=== PATIENT | female | born 1935 | race Caucasian/White ===

== ENCOUNTER 2017-06-10 08:26 | Inpatient (IN) | payer MEDICARE, MEDICAID ==
[2017-06-10] MEDS ORDERED: Aspirin 81mg Chewable Tab PO STA (08:43)
[2017-06-10] MEDS ORDERED: Aspirin 81mg Chewable Tab ONE ×2 (08:53)
--- NOTE | 2017-06-10 08:53 | ED Physician Chart ---
ED Chief Complaint/HPI - Patient Information Date Seen:: 06/10/17 Time Seen:: 08:35 Chief Complaint:: chest pain History of Present Illness:: The patient has had chest pain intermittently for the last two weeks. The pain is across the superior chest and radiates to both shoulders. Pain is dull and sometimes sharp. Patient occasionally gets diaphoresis and shortness of breath. Today's episode of chest pain lasted a few minutes but prior episodes of chest pain lasted only a few seconds. Patient has no chest pain at present. Vitals:: Vital Signs - 8 hr 06/10/17 08:37 Temp 98.2 F HR 68 RR 16 BP 109/55 O2 Sat % 98 Historian:: Patient Review:: Nurse's Note Reviewed ED Review of Systems - Review of Systems General/Constitutional: No fever, No chills Skin: No skin lesions Head: No headache Eyes: No loss of vision ENT: No earache Neck: No neck pain Cardio Vascular: Chest pain Pulmonary: SOB GI: No nausea, No vomiting, No diarrhea G/U: No dysuria Musculoskeletal: No bone or joint pain, No muscle pain Endocrine: No polyuria, No polydipsia Psychiatric: No prior psych history, No depression Hematopoietic: No bruising Allergic/Immuno: No urticaria Neurological: No syncope, No focal symptoms, No weakness ED Past Medical History - Past Medical History Past Medical History: No significant medical hx Family History: None Social History: Non Smoker, No Alcohol, Other (patient smoked 2-3 packages of cigarettes a day until 28 years ago when she stopped) Surgical History: Psychiatricy History: None Medication: None Family Medical History - Family Member Father Hx Family Hypertension: Yes ED Physical Exam - Physical Examination General/Constitutional: Awake, Well-developed, well-nourished, Alert, No distress Head: Atraumatic Eyes: Lids, conjuctiva normal, PERRL Skin: Nl inspection, No rash ENMT: External ears, nose nl Neck: No JVD, No nuchal rigidity Respiratory: Nl effort/Exclusion, Clear to Auscultation, No Wheeze/Rhonchi/Rales Cardio Vascular: RRR, No murmur, gallop, rubs, NL S1 S2 GI: No tenderness/rebounding/guarding, No organomegaly, No hernia, Normal BS's, Nondistended, No mass/bruits, No McBurney tenderness : No CVA tenderness Extremities: No tenderness or effusion, Full ROM, Normal digits & nails Neuro/Psych: Alert/oriented, No focal deficits Misc: Normal back ED Labs/Radiology/EKG Results - Lab Results Results: Laboratory Results - last 24 hr 06/10/17 06/10/17 06/10/17 08:40 08:40 08:40 WBC 6.8 RBC 4.31 Hgb 13.1 Hct 39.3 L MCV 91.2 MCH 30.3 MCHC Differential 33.2 RDW 12.9 Plt Count 214 MPV 8.0 Neutrophils % 59.5 Lymphocytes % 34.1 Monocytes % 4.8 Eosinophils % 1.4 Basophils % 0.2 Sodium 139 Potassium 3.3 L Chloride 108 H Carbon Dioxide 25.7 Anion Gap 8.6 BUN 17 Creatinine 0.6 Est GFR ( Amer) TNP Est GFR (Non-Af Amer) TNP BUN/Creatinine Ratio 28.3 Glucose 95 Calcium 9.1 Magnesium Troponin I B-Natriuretic Peptide 37.6 06/10/17 06/10/17 08:40 08:40 WBC RBC Hgb Hct MCV MCH MCHC Differential RDW Plt Count MPV Neutrophils % Lymphocytes % Monocytes % Eosinophils % Basophils % Sodium Potassium Chloride Carbon Dioxide Anion Gap BUN Creatinine Est GFR ( Amer) Est GFR (Non-Af Amer) BUN/Creatinine Ratio Glucose Calcium Magnesium 2.3 Troponin I 0.01 B-Natriuretic Peptide - Radiology Results Results: Chest x-ray: Calcification of the aortic arch; otherwise chest x-ray is normal - EKG Interpretations Rate & Rhythm: normal sinus rhythm Sargeant: normal axis Intervals: rate 64 Comments:: Decreased amplitude of the T-wave ED Assessment - Assessment General Assessment: Patient feels better after the breathing treatment. Patient's chest pain is probably more pulmonary in nature than cardiac. ED Septic Shock - . Is Septic Shock (SBP<90, OR Lactate>4 mmol\L) present?: No - <6hrs of presentation: Vital Signs: Vital Signs - 8 hr 06/10/17 08:37 Temp 98.2 F HR 68 RR 16 BP 109/55 O2 Sat % 98 ED Reassessment (Disposition) - Reassessment Reassessment Condition:: Improved - Diagnosis Diagnosis:: atypical chest pain; hypokalemia - Patient Disposition Admitted to:: Telemetry Spoke to:: Ernesto Samuel Admitting Medical Physician:: Ernesto Samuel Condition at Disposition:: Stable, Improved
[2017-06-10 08:59] LABS: % BASOPHILS 0.2 % (0.0-2.0); % EOSINOPHILS 1.4 % (0.0-5.0); % LYMPHOCYTES 34.1 % (20.0-50.0); % MONOCYTES 4.8 % (2.0-10.0); % NEUTROPHILS 59.5 % (40.0-80.0); HEMATOCRIT 39.3 % (41.0-60); HEMOGLOBIN 13.1 gm/dL (12-16); MEAN CELL VOLUME 91.2 fl (81-100); MEAN CORPUSCULAR HEMOGLOBIN 30.3 pg (27.0-31.0); MEAN CORPUSCULAR HGB CONC 33.2 pg (28.0-36.0); NEUTROPHILE ABSOLUTE 4.1 Th/cmm (1.8-8.0); PLATELET COUNT 214 Th/cmm (150-400); RED BLOOD COUNT 4.31 Mil/cmm (3.80-5.20); RED CELL DISTRIBUTION WIDTH 12.9 % (11.5-20.0)
[2017-06-10 09:01] LABS: WHITE BLOOD COUNT 6.8 Th/cmm (4.8-10.8)
[2017-06-10] MEDS ORDERED: Albuterol Nebulizer 2.5mg/3mL HHN STA (09:01)
[2017-06-10] MEDS ORDERED: Albuterol Nebulizer 2.5mg/3mL HHN ONE (09:10)
[2017-06-10 09:28] LABS: ANION GAP 8.6 (7.0-16.0); BUN - UREA NITROGEN 17 mg/dL (7-25); BUN/CREATININE RATIO 28.3; CALCIUM SERUM 9.1 mg/dL (8.6-10.3); CARBON DIOXIDE 25.7 mEq/L (21.0-31.0); CHLORIDE 108 mEq/L (98-107); CREATININE - SERUM 0.6 mg/dL (0.6-1.2); GLUCOSE 95 mg/dL (70-105); POTASSIUM SERUM 3.3 mEq/L (3.5-5.1); SODIUM SERUM 139 mEq/L (136-145)
--- NOTE | 2017-06-10 09:49 | Diagnostic Imaging Report ---
Portable chest x-ray HISTORY: Pain The overall heart size is difficult to assess with portable technique. Atherosclerotic calcification seen in the aorta. No acute focal pulmonary processes. No hilar or mediastinal abnormalities. IMPRESSION: 1. No acute abnormalities 2. Atherosclerotic vascular changes
[2017-06-10] MEDS ORDERED: Potassium Chloride 20 mEq ER Tab PO ONE ×2 (10:44)
[2017-06-10] MEDS: Sodium Chloride 0.9% 1,000 ML IV SCH (12:43)
[2017-06-11] MEDS: Sodium Chloride 0.9% 1,000 ML IV SCH ×2 (01:43→17:46)
[2017-06-11 06:36] LABS: ANION GAP 7.3 (7.0-16.0); BUN - UREA NITROGEN 11 mg/dL (7-25); CALCIUM SERUM 8.4 mg/dL (8.6-10.3); CARBON DIOXIDE 25.7 mEq/L (21.0-31.0); CHLORIDE 111 mEq/L (98-107); CREATININE - SERUM 0.5 mg/dL (0.6-1.2); GLUCOSE 81 mg/dL (70-105); SODIUM SERUM 140 mEq/L (136-145)
--- NOTE | 2017-06-11 08:47 | History and Physical ---
History of Present Illness - HPI Chief Complaint: Chest pain HPI: Patient refer that for few days she has having chest pain, occasional sharp, that last to few seconds to few minutes. She refer that few days ago she felt down hitting right shoulder. 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 Pertinent Hx GI: Report: No Pertinent Hx Psych: Report: No Pertinent Hx Musculoskeletal: Report: No Pertinent Hx Rheumatologic: Report: No pertinent Hx Infectious Disease: Report: No Pertinent Hx Renal/: Report: No Pertinent Hx Endocrine: Report: No Pertinent Hx Dermatology: Report: No Pertinent Hx - Past Surgical History Past Surgical History: No pertinent Hx Family Medical History - Family Member Father History Unknown: Yes Ethnicity: Living Status: Hx Family Cancer: No Hx Family Coronary Artery Disease: No Hx Family Congestive Heart Failure: No Hx Family Hypertension: No Hx Family Stroke: No Hx Family Diabetes: No Hx Family Seizures: No Hx Family Dementia: No Hx Family AIDS: No Hx Family HIV: No Hx Family COPD: No Hx Family Hepatitis: No Mother Ethnicity: Non- Living Status: Hx Family Cancer: No Hx Family Coronary Artery Disease: No Hx Family Congestive Heart Failure: No Hx Family Hypertension: No Hx Family Stroke: No Hx Family Diabetes: No Hx Family Seizures: No Hx Family Dementia: No Hx Family AIDS: No Hx Family HIV: No Hx Family COPD: No Hx Family Hepatitis: No Hx Family Psychiatric Problems: No Hx Family Tuberculosis: Yes Social History Smoke: No Alcohol: None Drugs: None Lives: With Family Domestic Violence: Negative - Medications Home Medications: Home Medication Medication Instructions Recorded Type Calcium Carbonate [Oyster Shell 500 mg PO DAILY 06/10/17 History Calcium] Lisinopril 10 mg PO DAILY 06/10/17 History Vitamin D 1,000 unit PO DAILY 06/10/17 History - Allergies Allergies/Adverse Reactions: Allergies Allergy/AdvReac Type Severity Reaction Status Date / Time No Known Allergies Allergy Verified 06/10/17 08:51 Review of Systems - Review of Systems Constitutional: Report: No Significant Eyes: Report: No Significant ENT: Report: No Significant Respiratory: Report: Other (Occasional SOB) Cardiovascular: Report: Chest Pain Gastrointestinal: Report: No Significant Genitourinary: Report: No Significant Musculoskeletal: Report: No Significant Skin: Report: No Significant Neurological: Report: No Significant Physical Exam - Physical Exam HEENT: Report: Ears Nose Throat within normal limits Neck: Report: Within normal limits Cardiovascular Systems: Report: Regular, Rate and Rhythm Respiratory: Report: Breath Sounds are within normal limits Abdomen: Report: Non-tender to palpation Back: Report: Inspection of back is within normal limits. Extremities: Report: Non-tender to palpation. Skin: Report: Color of skin is within normal limits Neuro/Psych: Report: Mood affect is within normal limits - Lab Results All Lab Results last 24 hours: Laboratory Last Values WBC 6.8 Th/cmm (4.8-10.8) 06/10/17 08:40 RBC 4.31 Mil/cmm (3.80-5.20) 06/10/17 08:40 Hgb 13.1 gm/dL (12-16) 06/10/17 08:40 Hct 39.3 % (41.0-60) L 06/10/17 08:40 MCV 91.2 fl (81-100) 06/10/17 08:40 MCH 30.3 pg (27.0-31.0) 06/10/17 08:40 MCHC Differential 33.2 pg (28.0-36.0) 06/10/17 08:40 RDW 12.9 % (11.5-20.0) 06/10/17 08:40 Plt Count 214 Th/cmm (150-400) 06/10/17 08:40 MPV 8.0 fl 06/10/17 08:40 Neutrophils % 59.5 % (40.0-80.0) 06/10/17 08:40 Lymphocytes % 34.1 % (20.0-50.0) 06/10/17 08:40 Monocytes % 4.8 % (2.0-10.0) 06/10/17 08:40 Eosinophils % 1.4 % (0.0-5.0) 06/10/17 08:40 Basophils % 0.2 % (0.0-2.0) 06/10/17 08:40 Sodium 140 mEq/L (136-145) 06/11/17 05:25 Potassium 4.0 mEq/L (3.5-5.1) 06/11/17 05:25 Chloride 111 mEq/L (98-107) H 06/11/17 05:25 Carbon Dioxide 25.7 mEq/L (21.0-31.0) 06/11/17 05:25 Anion Gap 7.3 (7.0-16.0) 06/11/17 05:25 BUN 11 mg/dL (7-25) 06/11/17 05:25 Creatinine 0.5 mg/dL (0.6-1.2) L 06/11/17 05:25 Est GFR ( Amer) TNP 06/11/17 05:25 Est GFR (Non-Af Amer) TNP 06/11/17 05:25 BUN/Creatinine Ratio 22.0 06/11/17 05:25 Glucose 81 mg/dL (70-105) 06/11/17 05:25 Calcium 8.4 mg/dL (8.6-10.3) L 06/11/17 05:25 Magnesium 2.3 mg/dL (1.9-2.7) 06/10/17 08:40 Troponin I 0.02 ng/mL (0.01-0.05) 06/11/17 01:00 B-Natriuretic Peptide 37.6 pg/mL (5.0-100.0) 06/10/17 08:40 Laboratory Results - last 24 hr 06/10/17 06/11/17 06/11/17 16:56 01:00 05:25 Sodium 140 Potassium 4.0 Chloride 111 H Carbon Dioxide 25.7 Anion Gap 7.3 BUN 11 Creatinine 0.5 L Est GFR ( Amer) TNP Est GFR (Non-Af Amer) TNP BUN/Creatinine Ratio 22.0 Glucose 81 Calcium 8.4 L Troponin I 0.02 - Assessment Assessment: Patient is awake, alert, calm in no acute distress. Dx; Chest pain - Plan Plan: Patient in IV NS, pain control, Troponins requested every 8hrs. Will continue to monitor.
--- NOTE | 2017-06-11 17:22 | Cardiology ---
06/11/[address] Ernesto Samuel. M-MODE ECHOCARDIOGRAM: Mitral valve, anterior leaflet of mitral valve shows normal excursion, EF velocity. Posterior leaflet of mitral valve shows normal excursion. Left ventricular posterior wall shows increased thickness, normal excursion. Interventricular septum shows increased thickness, normal excursion, hypertrophy of the left ventricle, ejection fraction 55%. Left atrium enlarged. Aortic root shows normal dimension, normal excursion of aortic leaflets. CONCLUSION: Hypertrophy of the left ventricle, left atrial enlargement, ejection fraction 55%. 2D ECHO: Long axis view showed normal sized left ventricle with hypertrophy of the left ventricle. Left atrium enlarged. Aortic root shows normal dimension, normal excursion of aortic leaflets. Short axis view of mitral valve normal. Short axis view of aortic valve normal. Apical four chamber view showed normal sized left ventricle, left atrium, right ventricle, right atrium, tricuspid and mitral valve. CONCLUSION: Hypertrophy of the left ventricle. Left atrial enlargement, ejection fraction 55%. Doppler study shows prominent A wave consistent with poor compliance of left ventricle, mild tricuspid regurgitation, moderate aortic regurgitation. [facility]# [id number]
[2017-06-12 06:15] LABS: MEAN CORPUSCULAR HEMOGLOBIN 30.7 pg (27.0-31.0); WHITE BLOOD COUNT 6.2 Th/cmm (4.8-10.8)
[2017-06-12 06:38] LABS: % EOSINOPHILS 2.5 % (0.0-5.0); % MONOCYTES 6.4 % (2.0-10.0); % NEUTROPHILS 48.1 % (40.0-80.0); HEMOGLOBIN 12.4 gm/dL (12-16); MEAN CELL VOLUME 91.3 fl (81-100); MEAN CORPUSCULAR HGB CONC 33.6 pg (28.0-36.0); NEUTROPHILE ABSOLUTE 2.9 Th/cmm (1.8-8.0); PLATELET COUNT 208 Th/cmm (150-400); RED BLOOD COUNT 4.05 Mil/cmm (3.80-5.20); RED CELL DISTRIBUTION WIDTH 13.3 % (11.5-20.0)
[2017-06-12 06:42] LABS: ALB/GLOB RATIO 1.4 (1.0-1.8); ALKALINE PHOSPHATASE 56 U/L (34-104); BILIRUBIN,TOTAL 0.7 mg/dL (0.3-1.0); BUN - UREA NITROGEN 9 mg/dL (7-25); CALCIUM SERUM 8.8 mg/dL (8.6-10.3); CARBON DIOXIDE 26.8 mEq/L (21.0-31.0); CHLORIDE 109 mEq/L (98-107); CREATININE - SERUM 0.6 mg/dL (0.6-1.2); GLUCOSE 85 mg/dL (70-105); POTASSIUM SERUM 3.8 mEq/L (3.5-5.1); SGOT 15 U/L (13-39); SGPT/ALT 9 U/L (7-52); SODIUM SERUM 139 mEq/L (136-145)
[2017-06-12] MEDS: Sodium Chloride 0.9% 1,000 ML IV SCH ×2 (06:45→12:26)
--- NOTE | 2017-06-12 10:33 | General Progress Note ---
Subjective - Review of Systems Service Date: 06/12/17 Subjective: I am ok. Objective - Results Result Diagrams: 06/12/17 05:44 06/12/17 05:44 Recent Labs: Laboratory Last Values WBC 6.2 Th/cmm (4.8-10.8) 06/12/17 05:44 RBC 4.05 Mil/cmm (3.80-5.20) 06/12/17 05:44 Hgb 12.4 gm/dL (12-16) 06/12/17 05:44 Hct 37.0 % (41.0-60) L 06/12/17 05:44 MCV 91.3 fl (81-100) 06/12/17 05:44 MCH 30.7 pg (27.0-31.0) 06/12/17 05:44 MCHC Differential 33.6 pg (28.0-36.0) 06/12/17 05:44 RDW 13.3 % (11.5-20.0) 06/12/17 05:44 Plt Count 208 Th/cmm (150-400) 06/12/17 05:44 MPV 8.0 fl 06/12/17 05:44 Neutrophils % 48.1 % (40.0-80.0) 06/12/17 05:44 Lymphocytes % 43.0 % (20.0-50.0) 06/12/17 05:44 Monocytes % 6.4 % (2.0-10.0) 06/12/17 05:44 Eosinophils % 2.5 % (0.0-5.0) 06/12/17 05:44 Basophils % 0.0 % (0.0-2.0) 06/12/17 05:44 Sodium 139 mEq/L (136-145) 06/12/17 05:44 Potassium 3.8 mEq/L (3.5-5.1) 06/12/17 05:44 Chloride 109 mEq/L (98-107) H 06/12/17 05:44 Carbon Dioxide 26.8 mEq/L (21.0-31.0) 06/12/17 05:44 Anion Gap 7.0 (7.0-16.0) 06/12/17 05:44 BUN 9 mg/dL (7-25) 06/12/17 05:44 Creatinine 0.6 mg/dL (0.6-1.2) 06/12/17 05:44 Est GFR ( Amer) TNP 06/12/17 05:44 Est GFR (Non-Af Amer) TNP 06/12/17 05:44 BUN/Creatinine Ratio 15.0 06/12/17 05:44 Glucose 85 mg/dL (70-105) 06/12/17 05:44 Calcium 8.8 mg/dL (8.6-10.3) 06/12/17 05:44 Magnesium 2.3 mg/dL (1.9-2.7) 06/10/17 08:40 Total Bilirubin 0.7 mg/dL (0.3-1.0) 06/12/17 05:44 AST 15 U/L (13-39) 06/12/17 05:44 ALT 9 U/L (7-52) 06/12/17 05:44 Alkaline Phosphatase 56 U/L (34-104) 06/12/17 05:44 Troponin I 0.02 ng/mL (0.01-0.05) 06/11/17 01:00 B-Natriuretic Peptide 37.6 pg/mL (5.0-100.0) 06/10/17 08:40 Total Protein 6.1 gm/dL (6.0-8.3) 06/12/17 05:44 Albumin 3.5 gm/dL (3.7-5.3) L 06/12/17 05:44 Globulin 2.6 gm/dL 06/12/17 05:44 Albumin/Globulin Ratio 1.4 (1.0-1.8) 06/12/17 05:44 TSH 2.97 uIU/ml (0.34-5.60) 06/12/17 05:44 - Physical Exam Vitals and I&O: Vital Signs Temp 98.0 F 06/12/17 08:00 Pulse 69 06/12/17 08:20 Resp 18 06/12/17 08:00 BP 129/69 06/12/17 08:20 Pulse Ox 94 06/12/17 08:00 Intake & Output 06/11/17 06/12/17 06/12/17 18:59 06:59 18:59 Intake Total 1000 100 Balance 1000 100 Weight (lbs) 49.442 kg Intake: Intake, IV Amount 1000 Sodium Chloride 0.9% 1, 1000 000 ml @ 75 mls/hr IV . [id number] [facility] Rx#:[id number] Oral 100 Other: # Voids 4 # Bowel Movements 0 Active Medications: Current Medications Aspirin (Aspirin) 325 mg PO DAILY [facility] Stop: 08/10/17 08:59 Last Admin: 06/12/17 08:20 Dose: 325 mg Calcium Carbonate (Os-Juan Carlos) 500 mg PO DAILY [facility] Stop: 08/10/17 08:59 Last Admin: 06/12/17 08:20 Dose: 500 mg Sodium Chloride (Nacl 0.9%) 1,000 mls @ 75 mls/hr IV .[id number] [facility] Stop: 08/09/17 12:31 Last Admin: 06/12/17 06:45 Dose: Not Given Lisinopril (Zestril) 10 mg PO DAILY [facility] Stop: 08/10/17 08:59 Last Admin: 06/12/17 08:20 Dose: 10 mg Vitamin D (Vitamin D) 400 iu PO DAILY [facility] Stop: 08/10/17 08:59 Last Admin: 06/12/17 08:20 Dose: 400 iu General: Alert, Cooperative, Other (Confused) HEENT: Atraumatic, PERRLA Neck: Supple Cardiovascular: Regular rate Lungs: Clear to auscultation Abdomen: Bowel sounds Extremities: Other (No edema) Neurological: Other (Unstable gait) Skin: Other (Warm and dry) Psych/Mental Status: Other (Patient is awake, alert, confused, patient has poor short memory) Assessment/Plan - Assessment Assessment: Patient is awake, alert, calm in no acute distress. Patient do not recall that yesterday I spoke with her. Dx; Chest pain, Poor short memory - Plan Plan: Patient in IV NS, pain control, Troponins requested every 8hrs. Will continue to monitor.
[2017-06-13] MEDS: Sodium Chloride 0.9% 1,000 ML IV SCH (04:46)
--- NOTE | 2017-06-13 10:04 | Discharge Summary ---
General Discharge Summary - Discharge Summary Date of Admission: 06/10/17 Admitting Diagnosis: Chest pain Discharge Date: 06/13/17 Discharge Diagnosis: Atypical chest pain, HTN, CHF. Laboratory Findings: Laboratory Tests 06/10/17 06/11/17 06/11/17 16:56 01:00 05:25 WBC RBC Hgb Hct MCV MCH MCHC Differential RDW Plt Count MPV Neutrophils % Lymphocytes % Monocytes % Eosinophils % Basophils % Sodium 140 Potassium 4.0 Chloride 111 H Carbon Dioxide 25.7 Anion Gap 7.3 BUN 11 Creatinine 0.5 L Est GFR ( Amer) TNP Est GFR (Non-Af Amer) TNP BUN/Creatinine Ratio 22.0 Glucose 81 Calcium 8.4 L Total Bilirubin AST ALT Alkaline Phosphatase Troponin I 0.02 Total Protein Albumin Globulin Albumin/Globulin Ratio TSH 06/12/17 06/12/17 06/12/17 05:44 05:44 05:44 WBC 6.2 RBC 4.05 Hgb 12.4 Hct 37.0 L MCV 91.3 MCH 30.7 MCHC Differential 33.6 RDW 13.3 Plt Count 208 MPV 8.0 Neutrophils % 48.1 Lymphocytes % 43.0 Monocytes % 6.4 Eosinophils % 2.5 Basophils % 0.0 Sodium 139 Potassium 3.8 Chloride 109 H Carbon Dioxide 26.8 Anion Gap 7.0 BUN 9 Creatinine 0.6 Est GFR ( Amer) TNP Est GFR (Non-Af Amer) TNP BUN/Creatinine Ratio 15.0 Glucose 85 Calcium 8.8 Total Bilirubin 0.7 AST 15 ALT 9 Alkaline Phosphatase 56 Troponin I Total Protein 6.1 Albumin 3.5 L Globulin 2.6 Albumin/Globulin Ratio 1.4 TSH 2.97 Hospital Course: Patient was admitted to Telemetry, started with IV NS, Aspirin, Pain control, Troponins were requested Echocardiogram done. With this patient improved. Treatment: IV NS, Aspirin, Pain control and lisinopril Condition at Discharge: Stable Disposition: Discharge/Transfered to SNF Home Medications: Home Medication Medication Instructions Recorded Type Calcium Carbonate [Oyster Shell 500 mg PO DAILY 06/10/17 History Calcium] Lisinopril 10 mg PO DAILY 06/10/17 History Vitamin D 1,000 unit PO DAILY 06/10/17 History Inpatient Medications: Current Medications Aspirin (Aspirin) 325 mg PO DAILY [facility] Stop: 08/10/17 08:59 Last Admin: 06/13/17 08:21 Dose: 325 mg Calcium Carbonate (Os-Juan Carlos) 500 mg PO DAILY [facility] Stop: 08/10/17 08:59 Last Admin: 06/13/17 08:26 Dose: 500 mg Sodium Chloride (Nacl 0.9%) 1,000 mls @ 75 mls/hr IV .[id number] [facility] Stop: 08/09/17 12:31 Last Admin: 06/13/17 04:46 Dose: 75 mls/hr Lisinopril (Zestril) 10 mg PO DAILY [facility] Stop: 08/10/17 08:59 Last Admin: 06/13/17 08:21 Dose: 10 mg Vitamin D (Vitamin D) 400 iu PO DAILY [facility] Stop: 08/10/17 08:59 Last Admin: 06/13/17 08:27 Dose: 400 iu Activity: As Tolerated Discharge Diet: 2 Gram Sodium (Follow by PCP) Consults and Follow-Up: not on staff,PCP is [Primary Care Provider] -
== END 2017-06-13 15:30 | DRG 313 ==
LOC: ER 08:26 → TELE 11:12 → MSI 06-11 16:33
PROVIDERS: ADMIT General Practice; ATTEND General Practice
DX: R07.89 Other chest pain (principal); I25.10 Atherosclerotic heart disease of native coronary artery without angina pectoris; I11.0 Hypertensive heart disease with heart failure; I50.9 Heart failure, unspecified; E87.6 Hypokalemia; F17.210 Nicotine dependence, cigarettes, uncomplicated; Z79.899 Other long term (current) drug therapy
CPT/HCPCS: 36415-UA; 71010-TC; 80048-TC; 80053-TC; 83735-TC; 83880-TC; 84443-TC; 84484-TC; 85025-TC; 93005; 94640; J7030; J7613; Z7610